=== PATIENT | male | born 1980 | race Caucasian/White ===

== ENCOUNTER 2016-12-21 18:12 | Emergency (ER) | payer OTHER ==
[~2016-12-21] VITALS: Ht 170.2 cm; Wt 75.9 kg
[~2016-12-21 18:12] MED LIST: ABILIFY10 MG PO; ABILIFY2 MG PO; ADDERALL XR 2020 MG PO; ADDERALL15 MG PO; ADDERALL20 MG PO; BACTRIM,SEPT1 TABLET PO; BUPROPION HCL100 M1 PO; BUSPIRONE HCL10 MG PO; CARBAMAZEPINE200 MG PO; CELEXA10 M1 PO; CLEOCIN300 MG PO; CLINDAMYCIN HC300 MG PO; GABAPENTIN400 MG PO; KEFLEX500 MG PO; MIRTAZAPINE15 MG PO; NAPROSYN500 MG PO; NEURONTIN300 MG PO; NORCO 5/3251 TABLET PO; PERCOCET 5/31 TABLET PO; TEGRETOL-XR,CA100 MG PO; TEGRETOL-XR,CA400 MG PO; TEGRETOL200 MG PO; TRAMADOL HCL50 MG PO; ZOLOFT50 MG PO
[2016-12-21 18:19] VITALS: BP 134/103
[2016-12-21] MEDS ORDERED: ULTRAM50 MG PO (19:51)
== END 2016-12-21 20:43 | disposition home or self-care (01) ==
LOC: EME 18:12
PROC: 2W3QX1Z Immobilization of Right Lower Leg using Splint (ICD-10-PCS; principal; 2016-12-21)
DX: Z47.89 Encounter for other orthopedic aftercare (principal); S93.401A Sprain of unspecified ligament of right ankle, initial encounter; F17.200 Nicotine dependence, unspecified, uncomplicated
CPT/HCPCS: 73610; 99281; 99283